=== PATIENT | female | born 1950 | race African-American/Black ===

== ENCOUNTER → 2017-03-06 | Day surgery (SDC) | payer MEDICARE, MEDICAID | END | disposition home or self-care (01) | LOC: EDBD → CT 07:00 | PROVIDERS: ATTEND Internal Medicine Critical Care Medicine | DX: C34.91 Malignant neoplasm of unspecified part of right bronchus or lung (principal) | CPT/HCPCS: 32405; 77012 ==

== ENCOUNTER 2017-05-06 03:08 | Inpatient (IN) | payer MEDICAID, MEDICARE ==
[2017-05-06] VITALS (49 sets, daily range): BP systolic 73–132; BP diastolic 36–100
[~2017-05-06] VITALS: Ht 165.1 cm; Wt 73.5 kg
[2017-05-06] MEDS ORDERED: METHYLPREDNISOLONE SOD SUCC 125 MG/2 ML VIAL IV STA (06:33)
[2017-05-06] MEDS ORDERED: ONDANSETRON HCL 4MG/2ML VIAL IV STA (06:33)
[2017-05-06] MEDS ORDERED: IPRATROPIUM BROMIDE (0.02%) 0.5MG/2.5ML NEB HHN STA (06:33)
[2017-05-06] MEDS ORDERED: ALBUTEROL (0.083%) 2.5MG/3ML NEB HHN STA (06:33)
[2017-05-06] MEDS ORDERED: MAGNESIUM 2 G PREMIX 50 ML IV ONE (06:45)
[2017-05-06] MEDS ORDERED: IPRATROPIUM BROMIDE (0.02%) 0.5MG/2.5ML NEB ONE (06:47)
[2017-05-06] MEDS ORDERED: IPRATROPIUM/ALBUTEROL 0.5-3(2.5)MG/3ML NEB ONE (06:48)
[2017-05-06 07:07] LABS: HEMATOCRIT. 36.8 % (36.0-48.0); HEMOGLOBIN. 11.6 g/dL (12.0-16.0); MEAN CORPUSCULAR HEMOGLOBIN 24.7 pg (28.0-32.0); MEAN CORPUSCULAR VOLUME 78.1 fL (81.0-99.0); MEAN PLATELET VOLUME 9.4 fl (7.4-10.4); PLATELET 104 x1000/uL (130-400); RED BLOOD CELL COUNT 4.71 mill/uL (4.2-5.4); RED CELL DISTRIBUTION WIDTH 17.9 % (11.6-14.6)
[2017-05-06] MEDS ORDERED: LEVOFLOXACIN 500MG PREMIX 100 ML IV ONE ×2 (07:15→07:45)
[2017-05-06 07:17] LABS: INR 1.6; PARTIAL THROMBOPLASTIN TIME 28.6 sec (23.4-31.0); PROTHROMBIN TIME 16.6 sec (9.4-11.6)
[2017-05-06 07:19] LABS: AMMONIA 25 uMol/L (<32)
[2017-05-06 07:23] LABS: CARBON DIOXIDE 26 mEq/L (21-32); CHLORIDE 107 mEq/L (98-107); TROPONIN I 0.18 ng/mL (0.00-0.04)
[2017-05-06] MEDS ORDERED: PHENYTOIN SODIUM 500 MG in SODIUM CHLORIDE 0.9% 50 ML IV ONE (07:30)
[2017-05-06] MEDS ORDERED: DEXAMETHASONE 10 MG/ML VIAL IV ONE (07:30)
[2017-05-06] MEDS ORDERED: PHYTONADIONE 10MG/ML AMP IM ONE (07:45)
[2017-05-06] MEDS ORDERED: MANNITOL 12.5G (25%) VIAL 50ML IV ONE (08:00)
[2017-05-06 09:33] LABS: PLATELET ESTIMATE DECREASED
[2017-05-06] MEDS ORDERED: NICARDIPINE 50 MG in SODIUM CHLORIDE 0.9% 230 ML IV PRN (09:45)
[2017-05-06] MEDS ORDERED: POVIDONE-IODINE OINT 28.4GM TOP ONE (09:45)
[2017-05-06] MEDS ORDERED: GELATIN SPONGE,ABSORBABLE SZ 100 ONE (09:45)
[2017-05-06] MEDS ORDERED: BACITRACIN 50,000 UNITS/VIAL ONE (09:46)
[2017-05-06] MEDS ORDERED: LIDOCAINE HCL 1%/EPI 1:200,000 30 ML VIAL ONE (09:46)
[2017-05-06] MEDS ORDERED: BACITRACIN ZINC 15GM TUBE TOP ONE (09:46)
[2017-05-06] MEDS ORDERED: NORMAL SALINE 0.9% 10 ML SYR ONE (09:48)
[2017-05-06] MEDS ORDERED: FENTANYL CITRATE/PF 50MCG/ML 2ML VIAL ONE (09:49)
[2017-05-06] MEDS ORDERED: ROCURONIUM BROMIDE 10MG/ML VIAL 5ML IV ONE (09:50)
[2017-05-06] MEDS ORDERED: PROPOFOL 200MG/20ML VIAL IV ONE (10:00)
[2017-05-06] MEDS ORDERED: ETOMIDATE 2MG/ML 10ML VIAL IV ONE (10:07)
[2017-05-06] MEDS ORDERED: PHENYLEPHRINE HCL 10 MG/ML 1ML (IV VIAL) IV ONE ×3 (10:08→11:04)
[2017-05-06] MEDS ORDERED: THROMBIN (BOVINE) 5000 UNITS/VIAL TOP ONE (10:17)
[2017-05-06] MEDS ORDERED: CEFAZOLIN SODIUM 1000MG/VIAL ONE (10:22)
[2017-05-06] MEDS ORDERED: NICARDIPINE 100 MG in SODIUM CHLORIDE 0.9% 60 ML IV PRN (10:30)
[2017-05-06] MEDS ORDERED: DEXT 5%/LACTATED RINGERS 1,000 ML IV SCH (10:30)
[2017-05-06 10:43] LABS: CLARITY URINE CLOUDY (CLEAR); COLOR URINE DARK YELLOW (YELLOW); GLUCOSE URINE NEGATIVE (NEGATIVE); KETONES URINE TRACE (NEGATIVE); LEUKOCYTE ESTERASE URINE TRACE (NEGATIVE); NITRITE URINE NEGATIVE (NEGATIVE); OCCULT BLOOD URINE NEGATIVE (NEGATIVE); PROTEIN URINE 2+ (NEGATIVE); SPECIFIC GRAVITY URINE 1.022 (1.005-1.030)
[2017-05-06] MEDS ORDERED: PANTOPRAZOLE SODIUM 40 MG/VIAL IV SCH (11:00)
[2017-05-06] MEDS ORDERED: EPINEPHRINE 0.1MG/ML (1:10,000) 10ML SYR ONE ×2 (11:00→11:18)
[2017-05-06] MEDS ORDERED: LORAZEPAM 2MG/ML CPJ IV NR (11:15)
[2017-05-06] MEDS ORDERED: SODIUM BICARBONATE 7.5% 0.9 MEQ/ML 50ML SYR IV ONE (11:18)
[2017-05-06 12:52] LABS: BASOPHILS % 0.2 % (0.0-2.0); EOSINOPHILS % 0.3 % (0.0-5.0); HEMATOCRIT. 38.9 % (36.0-48.0); HEMOGLOBIN. 11.2 g/dL (12.0-16.0); MEAN CORPUSCULAR VOLUME 83.3 fL (81.0-99.0); MEAN PLATELET VOLUME 9.6 fl (7.4-10.4); MONOCYTES % 1.8 % (2.0-8.0); NEUTROPHILS % 91.7 % (40.0-76.0); PLATELET 103 x1000/uL (130-400); RED BLOOD CELL COUNT 4.67 mill/uL (4.2-5.4); RED CELL DISTRIBUTION WIDTH 18.5 % (11.6-14.6)
[2017-05-06 13:11] LABS: INR 1.8; PARTIAL THROMBOPLASTIN TIME 30.9 sec (23.4-31.0); PROTHROMBIN TIME 18.5 sec (9.4-11.6)
[2017-05-06 13:13] LABS: CARBON DIOXIDE 21 mEq/L (21-32); CHLORIDE 107 mEq/L (98-107); HDL CHOLESTEROL 27 mg/dL (40-59); LDL CHOLESTEROL 99 mg/dL (5-100); T4 FREE 1.24 ng/dL (0.76-1.46)
[2017-05-06 13:42] LABS: D-DIMER > 35.20 mg/L FEU (<0.50)
[2017-05-06 13:46] LABS: BG BASE EXCESS -15.9 mmol/L (-2.0-2.0); BG CARBOXYHEMOGLOBIN 0.5 % (0.5-1.5); BG DEOXYHEMOGLOBIN 3.4 % (0.0-5.0); BG FRACTION INSPIRED OXYGEN 70; BG HCO3 ACT 15.5 mmol/L (22.0-26.0); BG METHEMOGLOBIN 0.4 % (0.0-1.5); BG OXYGEN SATURATION 96.6 % (92.0-98.5); BG OXYHEMOGLOBIN 95.7 % (94.0-97.0); BG PCO2 61.8 mmHg (35.0-45.0); BG PH 7.016 (7.350-7.450); BG PO2 134.3 mmHg (75.0-100.0); BG SAMPLE SITE RIGHT RADIAL; BG TIDAL VOLUME(mL) 500 mL; BG VENT MODE VENT - A/C; BG VENT RATE 15 set
[2017-05-06] MEDS ORDERED: SODIUM BICARBONATE 8.4% 1 MEQ/ML 50ML SYR IV SCH (14:00)
[2017-05-06 14:42] LABS: TROPONIN I 0.15 ng/mL (0.00-0.04)
[2017-05-06 14:43] LABS: CREATINE KINASE MB FRACTION 2.4 ng/mL (0.5-3.6)
[2017-05-06] MEDS: PHENYTOIN SODIUM 100MG/2ML VIAL IV SCH ×2 (14:58→21:53)
[2017-05-06 15:03] LABS: BG BASE EXCESS -15.9 mmol/L (-2.0-2.0); BG CARBOXYHEMOGLOBIN 0.4 % (0.5-1.5); BG DEOXYHEMOGLOBIN 1.8 % (0.0-5.0); BG FRACTION INSPIRED OXYGEN 70; BG HCO3 ACT 13.1 mmol/L (22.0-26.0); BG METHEMOGLOBIN 0.4 % (0.0-1.5); BG OXYGEN SATURATION 98.2 % (92.0-98.5); BG OXYHEMOGLOBIN 97.4 % (94.0-97.0); BG PCO2 43.3 mmHg (35.0-45.0); BG PO2 156.8 mmHg (75.0-100.0); BG SAMPLE SITE RIGHT RADIAL; BG TIDAL VOLUME(mL) 550 mL; BG TOTAL HEMOGLOBIN 12.5 g/dL (12.0-18.0); BG VENT MODE VENT - A/C; BG VENT RATE 20 set
[2017-05-06] MEDS ORDERED: SODIUM BICARBONATE 8.4% 1 MEQ/ML 50ML SYR IV NR ×2 (15:15→16:30)
[2017-05-06 16:16] LABS: BG BASE EXCESS -11.4 mmol/L (-2.0-2.0); BG CARBOXYHEMOGLOBIN 0.3 % (0.5-1.5); BG DEOXYHEMOGLOBIN 0.9 % (0.0-5.0); BG FRACTION INSPIRED OXYGEN 100; BG HCO3 ACT 15.7 mmol/L (22.0-26.0); BG METHEMOGLOBIN 0.2 % (0.0-1.5); BG OXYGEN SATURATION 99.1 % (92.0-98.5); BG OXYHEMOGLOBIN 98.6 % (94.0-97.0); BG PCO2 39.7 mmHg (35.0-45.0); BG PH 7.215 (7.350-7.450); BG PO2 272.9 mmHg (75.0-100.0); BG SAMPLE SITE RIGHT RADIAL; BG TIDAL VOLUME(mL) 550 mL; BG TOTAL HEMOGLOBIN 11.6 g/dL (12.0-18.0); BG VENT MODE VENT - A/C; BG VENT RATE 22 set
[2017-05-06] MEDS: CEFAZOLIN 1000MG PREMIX 50 ML IV SCH (17:10)
[2017-05-06] MEDS ORDERED: SODIUM BICARBONATE 100 MEQ in DEXTROSE 5% WATER 1,000 ML IV SCH (18:00)
[2017-05-06 21:29] LABS: BG BASE EXCESS -6.6 mmol/L (-2.0-2.0); BG CARBOXYHEMOGLOBIN 0.3 % (0.5-1.5); BG DEOXYHEMOGLOBIN 20.8 % (0.0-5.0); BG FRACTION INSPIRED OXYGEN 35; BG HCO3 ACT 18.7 mmol/L (22.0-26.0); BG METHEMOGLOBIN 0.1 % (0.0-1.5); BG OXYGEN SATURATION 79.1 % (92.0-98.5); BG OXYHEMOGLOBIN 78.8 % (94.0-97.0); BG PCO2 36.5 mmHg (35.0-45.0); BG PH 7.328 (7.350-7.450); BG PIP 29 cmH2O; BG PO2 50.5 mmHg (75.0-100.0); BG SAMPLE SITE RIGHT RADIAL; BG TIDAL VOLUME(mL) 550 mL; BG TOTAL HEMOGLOBIN 11.1 g/dL (12.0-18.0); BG VENT MODE VENT - A/C; BG VENT RATE 22 set
[2017-05-06] MEDS: PHENYLEPHRINE 10 MG in DEXT 5% WATER 249 ML IV PRN (22:34)
[2017-05-06 22:55] LABS: CREATINE KINASE MB FRACTION 2.4 ng/mL (0.5-3.6); TROPONIN I 0.31 ng/mL (0.00-0.04)
[2017-05-07] VITALS (17 sets, daily range): BP systolic 88–171; BP diastolic 48–146
[2017-05-07] MEDS ORDERED: MORPHINE SULFATE 2 MG/ML CPJ (NOT FOR IM USE) IV PRN ×2 (00:30)
[2017-05-07] MEDS ORDERED: MORPHINE SULFATE 4 MG/ML CPJ (NOT FOR IM USE) IV PRN ×2 (00:43)
[2017-05-07] MEDS: MORPHINE SULFATE 4 MG/ML CPJ (NOT FOR IM USE) IV PRN ×2 (00:47→03:04)
[2017-05-07] MEDS: PHENYLEPHRINE 10 MG in DEXT 5% WATER 249 ML IV PRN (01:30)
[2017-05-07] MEDS: CEFAZOLIN 1000MG PREMIX 50 ML IV SCH (02:07)
[2017-05-07] MEDS ORDERED: PHENYLEPHRINE 40 MG in DEXT 5% WATER 246 ML IV PRN (02:30)
[2017-05-07 03:32] LABS: BG BASE EXCESS -14.5 mmol/L (-2.0-2.0); BG DEOXYHEMOGLOBIN 8.7 % (0.0-5.0); BG FRACTION INSPIRED OXYGEN 50; BG HCO3 ACT 12.1 mmol/L (22.0-26.0); BG METHEMOGLOBIN 0.2 % (0.0-1.5); BG OXYGEN SATURATION 91.3 % (92.0-98.5); BG OXYHEMOGLOBIN 91.1 % (94.0-97.0); BG PCO2 30.8 mmHg (35.0-45.0); BG PH 7.212 (7.350-7.450); BG PO2 81.1 mmHg (75.0-100.0); BG SAMPLE SITE LEFT RADIAL; BG TIDAL VOLUME(mL) 550 mL; BG TOTAL HEMOGLOBIN 12.2 g/dL (12.0-18.0); BG VENT MODE VENT - A/C; BG VENT RATE 22 set
== END 2017-05-07 03:52 | disposition expired | DRG 25 ==
LOC: ER 03:08 → EDBEDREQ 07:33 → EDBEDREQTM 07:33 → EDBEDREQSVC 07:33 → MICUSO 07:55 → EDBD 07:55 → EDBEDREQ 07:59 → ENRESERV 08:27
PROVIDERS: ADMIT Internal Medicine; ATTEND Internal Medicine
PROC: 5A1935Z Respiratory Ventilation, Less than 24 Consecutive Hours (ICD-10-PCS; 2017-05-06)
PROC: B548ZZA Ultrasonography of Superior Vena Cava, Guidance (ICD-10-PCS; 2017-05-06)
PROC: 00C40ZZ Extirpation of Matter from Intracranial Subdural Space, Open Approach (ICD-10-PCS; 2017-05-06)
PROC: 009400Z Drainage of Intracranial Subdural Space with Drainage Device, Open Approach (ICD-10-PCS; 2017-05-06)
PROC: 0NU00JZ Supplement Skull with Synthetic Substitute, Open Approach (ICD-10-PCS; 2017-05-06)
PROC: 00H032Z Insertion of Monitoring Device into Brain, Percutaneous Approach (ICD-10-PCS; 2017-05-06)
PROC: 4A103BD Monitoring of Intracranial Pressure, Percutaneous Approach (ICD-10-PCS; 2017-05-06)
PROC: 02HV33Z Insertion of Infusion Device into Superior Vena Cava, Percutaneous Approach (ICD-10-PCS; principal; 2017-05-06 13:00)
DX: I62.01 Nontraumatic acute subdural hemorrhage (principal); G93.40 Encephalopathy, unspecified; J96.00 Acute respiratory failure, unspecified whether with hypoxia or hypercapnia; N17.0 Acute kidney failure with tubular necrosis; D68.9 Coagulation defect, unspecified; D69.6 Thrombocytopenia, unspecified; C79.31 Secondary malignant neoplasm of brain; I95.9 Hypotension, unspecified; R47.02 Dysphasia; Z85.118 Personal history of other malignant neoplasm of bronchus and lung; Z86.711 Personal history of pulmonary embolism; Z86.718 Personal history of other venous thrombosis and embolism; Z86.73 Personal history of transient ischemic attack (TIA), and cerebral infarction without residual deficits
CPT/HCPCS: 36415; 36569; 36600; 70450; 71010; 76937; 80053; 80061; 81001; 82140; 82375; 82550; 82553; 82805; 83036; 83605; 83690; 83880; 84439; 84443; 84484; 85025; 85379; 85610; 85730; 86850; 86900; 86927; 87040; 87086; 92950; 93005; 93970; 94002; 96365; 96366; 96367; 96375; 96376; 99291; A4216; C1713; C1725; C1758; J0171; J0690; J1100; J1165; J1956; J2150; J2270; J2370; J2405; J2704; J2930; J3010; J3430; J3475; J3490; J7030; J7050; J7060; J7070; J7120; J7121; J7611; J7620; P9017; A4315